=== PATIENT | female | born 1965 | race African-American/Black ===

== ENCOUNTER 2016-02-17 16:16 | Emergency (ER) | payer SELFPAY ==
[2016-02-17] MEDS ORDERED: ONDANSETRON 4 MG TAB.RAPDIS PO ONE (17:27)
[2016-02-17] MEDS ORDERED: OXYCODONE-ACETAMINOPHEN 5-325 MG TABLET PO ONE (17:27)
--- NOTE | 2016-02-17 17:27 | ER Document Report ---
ED Medical Screen (RME) - General Chief Complaint: Abdominal Pain Stated Complaint: BACK AND STOMACH PAIN Notes: 50 yo female c/o generalized abdominal pain, vaginal discharge with foul odor. + back pain, lower. no radiculopathy. no paresthesia. + anxiety attack with chest tightness/pain here in ED at triage. no nausea or vomiting. + hx/o ulcer , treated with prev-pack. TRAVEL OUTSIDE OF THE [place] IN LAST 30 DAYS: No - Related Data Allergies/Adverse Reactions: No Known Drug Allergies Allergy (Unknown, Verified 02/17/16 16:51) ants Allergy (Severe, Uncoded 02/17/16 16:51) Anaphylaxis Past Medical History - Social History Chew tobacco use (# tins/day): No Drug Abuse: None - Past Medical History Cardiac Medical History: Reports: Hx Heart Attack - pt is not sure Pulmonary Medical History: Reports: Hx Bronchitis Denies: Hx Tuberculosis Renal/ Medical History: Reports: Hx Ovarian Cysts Psychiatric Medical History: Reports: Hx Anxiety, Hx Depression Past Surgical History: Reports: Hx Section - X1, Hx Tubal Ligation. Denies: Hx Pacemaker - Immunizations Hx Diphtheria, Pertussis, Tetanus Vaccination: Yes Physical Exam - Vital signs Vitals: Temp Pulse Resp BP Pulse Ox 98.0 F 74 18 141/75 H 97 02/17/16 16:52 02/17/16 16:52 02/17/16 16:52 02/17/16 16:52 02/17/16 16:52 Course - Vital Signs Vital signs: Temp Pulse Resp BP Pulse Ox 98.0 F 74 18 141/75 H 97 02/17/16 16:52 02/17/16 16:52 02/17/16 16:52 02/17/16 16:52 02/17/16 16:52
[2016-02-17 17:51] LABS: ABSOLUTE BASOPHILS # (AUTO) 0.1 10^3/uL (0.0-0.2); ABSOLUTE EOSINOPHILS # (AUTO) 0.1 10^3/uL (0.0-0.6); ABSOLUTE LYMPHOCYTES (AUTO) 3.9 10^3/uL (0.5-4.7); ABSOLUTE MONOCYTES (AUTO) 0.5 10^3/uL (0.1-1.4); ABSOLUTE NEUT (AUTO) 4.3 10^3/uL (1.7-8.2); BASOPHILS % (AUTO) 1.4 % (0-2); EOSINOPHILS % (AUTO) 1.2 % (0-6); HEMATOCRIT 42.5 % (36.0-47.0); HEMOGLOBIN 13.8 g/dL (12.0-15.5); HGB HCT DIFFERENCE -1.1; LYMPHOCYTES % (AUTO) 43.5 % (13-45); MEAN CORPUSCULAR HEMOGLOBIN 26.5 pg (27.0-33.4); MEAN CORPUSCULAR HGB CONC 32.5 g/dL (32.0-36.0); MEAN CORPUSCULAR VOLUME 82 fl (80-97); MONOCYTES % (AUTO) 6.1 % (3-13); RED BLOOD COUNT 5.22 10^6/uL (3.72-5.28); RED CELL DISTRIBUTION WIDTH 14.4 % (11.5-14.0); SEGMENTED NEUTROPHILS % (AUTO) 47.8 % (42-78); WHITE BLOOD COUNT 9.1 10^3/uL (4.0-10.5)
[2016-02-17 18:11] LABS: ALANINE AMINOTRANSFERASE 31 U/L (9-52); ALBUMIN 4.6 g/dL (3.5-5.0); ALKALINE PHOSPHATASE 66 U/L (38-126); ANION GAP 15 (5-19); ASPARTATE AMINO TRANSFERASE 19 U/L (14-36); BILIRUBIN,TOTAL 0.4 mg/dL (0.2-1.3); BLOOD UREA NITROGEN 14 mg/dL (7-20); CARBON DIOXIDE 21 mmol/L (22-30); CHLORIDE 106 mmol/L (98-107); CREATININE RESULT 1.07 mg/dL (0.52-1.25); GLUCOSE 78 mg/dL (75-110); TOTAL PROTEIN 7.7 g/dL (6.3-8.2)
[2016-02-17 18:36] LABS: APPEARANCE,URINE SLIGHTLY-CLOUDY; BILIRUBIN,URINE NEGATIVE (NEGATIVE); GLUCOSE, URINE NEGATIVE (NEGATIVE); KETONES,URINE NEGATIVE (NEGATIVE); LEUKOCYTE ESTERASE,URINE TRACE (NEGATIVE); NITRITE,URINE NEGATIVE (NEGATIVE); PROTEIN,URINE NEGATIVE (NEGATIVE); URINE SPECIFIC GRAVITY 1.013; UROBILINOGEN,URINE NEGATIVE mg/dL (<2.0)
--- NOTE | 2016-02-17 21:14 | ER Document Report ---
ED GI/ <KANASYDNEE - Last Filed: 02/17/16 23:16> - General Mode of Arrival: Ambulatory Information source: Patient TRAVEL OUTSIDE OF THE [place] IN LAST 30 DAYS: No - HPI Patient complains to provider of: Abdominal pain Associated symptoms: Other - See above <LILLY GARNER - Last Filed: 02/17/16 23:22> - General Chief Complaint: Abdominal Pain Stated Complaint: BACK AND STOMACH PAIN Notes: Patient is a 50-year-old female who presents to the emergency department complaining of abdominal pain onset 1 week ago. Patient reports that the pain radiates around her back and worsened last night. Patient reports she has chronic lower back pain and that the pain she is experiencing now is different as it is all over. Patient also complains of vaginal odor described as "fishy" . She denies nausea, vomiting, diarrhea, burning all urinating, fever, chills, and cough. (LILLY GARNER) - Related Data Allergies/Adverse Reactions: No Known Drug Allergies Allergy (Unknown, Verified 02/17/16 16:51) ants Allergy (Severe, Uncoded 02/17/16 16:51) Anaphylaxis Past Medical History - General Information source: Patient - Social History Smoking Status: Never Smoker Chew tobacco use (# tins/day): No Drug Abuse: None Family History: CAD - father Patient has suicidal ideation: No Patient has homicidal ideation: No - Past Medical History Cardiac Medical History: Reports: Hx Heart Attack - pt is not sure Pulmonary Medical History: Reports: Hx Bronchitis Renal/ Medical History: Reports: Hx Ovarian Cysts Psychiatric Medical History: Reports: Hx Anxiety, Hx Depression Past Surgical History: Reports: Hx Section - X1, Hx Tubal Ligation - Immunizations Hx Diphtheria, Pertussis, Tetanus Vaccination: Yes <LILLY GARNER - Last Filed: 02/17/16 23:22> Review of Systems - Review of Systems Constitutional: denies: Chills, Fever EENT: No symptoms reported Cardiovascular: No symptoms reported Respiratory: denies: Cough Gastrointestinal: See HPI, Abdominal pain. denies: Diarrhea, Nausea, Vomiting Genitourinary: denies: Burning Female Genitourinary: See HPI, Vaginal odor Musculoskeletal: See HPI, Back pain Skin: No symptoms reported Hematologic/Lymphatic: No symptoms reported Neurological/Psychological: No symptoms reported -: Yes All other systems reviewed and negative <LILLY GARNER - Last Filed: 02/17/16 23:22> Physical Exam - Vital signs Interpretation: Normal - General General appearance: Appears well, Alert - HEENT Head: Normocephalic, Atraumatic Eyes: Normal Pupils: PERRL - Respiratory Respiratory status: No respiratory distress Chest status: Nontender Breath sounds: Normal Chest palpation: Normal - Cardiovascular Rhythm: Regular Heart sounds: Normal auscultation Murmur: No - Abdominal Inspection: Normal Distension: No distension Bowel sounds: Normal Tenderness: Nontender Organomegaly: No organomegaly - Genitourinary External exam: Normal Speculum exam: Vaginal discharge - white and malodorous Bimanuel exam: No: Cervical motion tender, Adnexal tenderness - Back Back: Normal, Nontender - No midline thoracic or lumbar tenderness to palpation - Extremities General upper extremity: Normal inspection, Normal ROM, Normal strength General lower extremity: Normal inspection, Normal ROM, Normal strength, Normal weight bearing - Neurological Neuro grossly intact: Yes Cognition: Normal Orientation: AAOx4 Barron Coma Scale Eye Opening: Spontaneous Welches Coma Scale Verbal: Oriented Welches Coma Scale Motor: Obeys Commands Barron Coma Scale Total: 15 Speech: Normal - Psychological Associated symptoms: Normal affect, Normal mood - Skin Skin Temperature: Warm Skin Moisture: Dry Skin Color: Normal <LILLY GARNER - Last Filed: 02/17/16 23:22> - Vital signs Vitals: Temp Pulse Resp BP Pulse Ox 98.0 F 74 18 141/75 H 97 02/17/16 16:52 02/17/16 16:52 02/17/16 16:52 02/17/16 16:52 02/17/16 16:52 (SYDNEE ROGER) (LILLY GARNER) Course - Laboratory Result Diagrams: 02/17/16 17:30 02/17/16 17:30 <SYDNEE ROGER - Last Filed: 02/17/16 23:16> - Laboratory Result Diagrams: 02/17/16 17:30 02/17/16 17:30 <LILLY GARNER - Last Filed: 02/17/16 23:22> - Vital Signs Vital signs: Temp Pulse Resp BP Pulse Ox 98.0 F 74 18 141/75 H 97 02/17/16 16:52 02/17/16 16:52 02/17/16 20:45 02/17/16 16:52 02/17/16 16:52 (SYDNEE ROGER) (LILLY GARNER) - Laboratory Laboratory results interpreted by me: 02/17/16 02/17/16 02/17/16 17:30 17:30 18:15 MCH 26.5 L RDW 14.4 H Carbon Dioxide 21 L Est GFR (Non-Af Amer) 54 L Ur Leukocyte Esterase TRACE H (SYDNEE ROGER) (LILLY GARNER) Scribe Documentation - Scribe Written by Scrteressa:: matt Sharma, 02/17/16, 2253 acting as scribe for :: Kana <LILLY GARNER - Last Filed: 02/17/16 23:22>
--- NOTE | 2016-02-17 23:06 | EKG REPORT ---
SEVERITY:- BORDERLINE ECG - SINUS RHYTHM BORDERLINE T ABNORMALITIES, DIFFUSE LEADS : Confirmed by: Bhavin Anguiano 17-Feb-2016 23:06:02
[2016-02-17 23:55] VITALS: BP 126/65
[2016-02-18 00:09] LABS: CHLAM PCR NOT DETECTED (NOT DETECT)
--- NOTE | 2016-02-29 09:19 | ER Document Report ---
Doctor's Note Notes: 02/29/16 09:18 diagnosis 1. low back pain
== END 2016-02-17 23:56 | disposition home or self-care (01) ==
LOC: ER 16:16
DX: M54.5 Low back pain (principal); R10.9 Unspecified abdominal pain; G89.29 Other chronic pain; N89.8 Other specified noninflammatory disorders of vagina; I25.2 Old myocardial infarction; Z98.51 Tubal ligation status
CPT/HCPCS: 93005; 99284; 36415; 87086; 87210; 83690; 85025; 87088; 80053; 81001; 84484; 87186; 87491; 87591; 93010; S0119

== ENCOUNTER 2016-03-17 23:39 | Emergency (ER) | payer SELFPAY ==
[2016-03-18 00:25] LABS: ABSOLUTE EOSINOPHILS # (AUTO) 0.1 10^3/uL (0.0-0.6); ABSOLUTE LYMPHOCYTES (AUTO) 4.3 10^3/uL (0.5-4.7); ABSOLUTE MONOCYTES (AUTO) 0.3 10^3/uL (0.1-1.4); ABSOLUTE NEUT (AUTO) 4.7 10^3/uL (1.7-8.2); BASOPHILS % (AUTO) 0.5 % (0-2); EOSINOPHILS % (AUTO) 0.7 % (0-6); HEMATOCRIT 37.3 % (36.0-47.0); HEMOGLOBIN 12.5 g/dL (12.0-15.5); HGB HCT DIFFERENCE 0.2; LYMPHOCYTES % (AUTO) 45.6 % (13-45); MEAN CORPUSCULAR HEMOGLOBIN 27.2 pg (27.0-33.4); MEAN CORPUSCULAR HGB CONC 33.5 g/dL (32.0-36.0); MEAN CORPUSCULAR VOLUME 81 fl (80-97); MONOCYTES % (AUTO) 3.2 % (3-13); RED BLOOD COUNT 4.59 10^6/uL (3.72-5.28); RED CELL DISTRIBUTION WIDTH 14.7 % (11.5-14.0); WHITE BLOOD COUNT 9.5 10^3/uL (4.0-10.5)
[2016-03-18 00:48] LABS: ALANINE AMINOTRANSFERASE 24 U/L (9-52); ALBUMIN 3.5 g/dL (3.5-5.0); ALKALINE PHOSPHATASE 56 U/L (38-126); ANION GAP 10 (5-19); ASPARTATE AMINO TRANSFERASE 19 U/L (14-36); BILIRUBIN,TOTAL 0.2 mg/dL (0.2-1.3); BLOOD UREA NITROGEN 11 mg/dL (7-20); CARBON DIOXIDE 20 mmol/L (22-30); CHLORIDE 109 mmol/L (98-107); CREATINE KINASE 75 U/L (30-135); CREATININE RESULT 1.23 mg/dL (0.52-1.25); GLUCOSE 126 mg/dL (75-110); POTASSIUM 3.5 mmol/L (3.6-5.0); SODIUM 139.4 mmol/L (137-145); TOTAL PROTEIN 6.1 g/dL (6.3-8.2)
[2016-03-18 01:01] LABS: CREATINE KINASE MB 0.95 ng/mL (<4.55)
[2016-03-18 01:02] LABS: TROPONIN I < 0.012 ng/mL
--- NOTE | 2016-03-18 04:05 | ER Document Report ---
ED General - General Chief Complaint: Chest Pain Stated Complaint: CHEST PAIN Notes: Patient is 50-year-old female presents with complaint of pain left side of her chest. 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 Says felt like pain that went from her left chest into her left shoulder in internal left arm. She had some numbness into her left arm. No difficulty breathing. No previous history of coronary artery disease. She says she did have panic attacks in the past which has caused chest pain but this feels different. Patient says this pain feels different and that is worse when she rolls, moves, or twists. She has a family history of coronary disease. She does smoke. Occasional alcohol use. No drug abuse. TRAVEL OUTSIDE OF THE [place] IN LAST 30 DAYS: No - Related Data Allergies/Adverse Reactions: No Known Drug Allergies Allergy (Unknown, Verified 02/17/16 16:51) ants Allergy (Severe, Uncoded 02/17/16 16:51) Anaphylaxis Past Medical History - Social History Smoking Status: Current Every Day Smoker Chew tobacco use (# tins/day): No Frequency of alcohol use: Social Drug Abuse: None Family History: CAD - father Patient has suicidal ideation: No Patient has homicidal ideation: No - Past Medical History Cardiac Medical History: Reports: Hx Heart Attack - pt is not sure Pulmonary Medical History: Reports: Hx Bronchitis Denies: Hx Tuberculosis Renal/ Medical History: Reports: Hx Ovarian Cysts. Denies: Hx Peritoneal Dialysis Psychiatric Medical History: Reports: Hx Anxiety, Hx Depression Past Surgical History: Reports: Hx Section - X1, Hx Tubal Ligation. Denies: Hx Pacemaker - Immunizations Hx Diphtheria, Pertussis, Tetanus Vaccination: Yes Review of Systems - Review of Systems Notes: My Normal Review Basic REVIEW OF SYSTEMS: CONSTITUTIONAL : Denies fever, chills, or sweats. Denies recent illness. CARDIOVASCULAR: Has chest pain RESPIRATORY: Denies cough, cold, or chest congestion. Denies shortness of breath, difficulty breathing, or wheezing. GASTROINTESTINAL: Denies abdominal pain. Denies nausea, vomiting, or diarrhea. Denies constipation. Last BM: GENITOURINARY: Denies difficulty urinating, painful urination, burning, frequency, or blood in urine. MUSCULOSKELETAL: Denies neck or back pain or joint pain or swelling. SKIN: Denies rash or skin lesions. NEUROLOGICAL: Denies altered mental status or loss of consciousness. Denies headache. Denies weakness or paralysis or loss of use of either side. Denies problems with gait or speech. Denies sensory or motor loss. ALL OTHER SYSTEMS REVIEWED AND NEGATIVE. Physical Exam - Vital signs Vitals: Temp Pulse Resp BP Pulse Ox 97.4 F 79 20 137/82 H 100 03/17/16 23:52 03/17/16 23:52 03/17/16 23:52 03/17/16 23:52 03/17/16 23:52 - Notes Notes: General Appearance: Well nourished, alert, cooperative, no acute distress, no obvious discomfort. Vitals: reviewed, See vital signs table. Head: no swelling or tenderness to the head Eyes: PERRL, EOMI, Conjuctiva clear Mouth: No decreasd moisture Neck: Supple, no neck tenderness, No thyromegaly Lungs: No wheezing, No rales, No rhonci, No accessory muscle use, good air exchange bilaterally. Heart: Normal rate, Regular rythm, No murmur, no rub Chest wall: Patient has reproducible pain to palpation over left upper chest wall. Pain is also worse when the patient moves or twists in the bed. Abdomen: Normal BS, soft, No rigidity, No abdominal tenderness, No guarding, no rebound, no abdominal masses, no organomegaly Extremities: strength 5/5 in all extremities, good pulses in all extremities, no swelling or tenderness in the extremities, no edema. Skin: warm, dry, appropriate color, no rash Neuro: speech clear, oriented x 3, normal affect, responds appropriately to questions. Course - Vital Signs Vital signs: Temp Pulse Resp BP Pulse Ox 97.4 F 79 16 126/66 H 98 03/17/16 23:52 03/17/16 23:52 03/18/16 05:02 03/18/16 05:02 03/18/16 05:02 - Laboratory Result Diagrams: 03/18/16 00:16 03/18/16 00:16 Laboratory results interpreted by me: 03/18/16 03/18/16 00:16 00:16 RDW 14.7 H Lymphocytes % 45.6 H Potassium 3.5 L Chloride 109 H Carbon Dioxide 20 L Est GFR ( Amer) 55 L Est GFR (Non-Af Amer) 46 L Glucose 126 H Total Protein 6.1 L - EKG Interpretation by Me Additional EKG results interpreted by me: 03/18/16 04:05 EKG is reviewed and interpreted by me. EKG shows normal sinus rhythm with rate of [address] segment elevation or depression. No ischemic T wave inversions. IA level, QRS duration, QTC intervals are within normal range. Old EKG for comparison is from February. - Transfer of Care Notes: 03/18/16 06:03 At this time I feel the patient is safe to be discharged home. I think it's unlikely that her pain is cardiac. I feel the cervix patient's pain is reproducible palpation also worse with movement. Also her pain was unaffected by nitroglycerin but easily relieved with Toradol. Patient looks very well. EKG is normal. She's had a troponin and a delta troponin which were both negative. Feel the patient safe to be discharged home. Due to her age I will still have her follow-up with Dr. Du, senior technical specialist. Feel that she is low risk and therefore outpatient follow-up is appropriate. Her heart score is 2. I encourage her to return to ER immediately if she has recurrent pain, any difficulty breathing, or she feels unwell. Patient agrees with plan and will be discharged home. Dictation of this chart was performed using voice recognition software; therefore, there may be some unintended grammatical errors. Discharge - Discharge Clinical Impression: Chest pain Qualifiers: Chest pain type: unspecified Qualified Code(s): R07.9 - Chest pain, unspecified Condition: Good Disposition: HOME, SELF-CARE Additional Instructions: CHEST PAIN OF UNCLEAR CAUSE: The exact cause of your chest pain isn't clear. Fortunately, there is no evidence of a dangerous medical condition. Further testing may be required to find the source of the pain. Most often, we find that this pain is coming from the chest wall -- the muscles or rib joints in the chest. But chest pain can come from the lung and lung lining, the esophagus, the heart valves or heart lining, and even the stomach or gallbladder. Rest. Eat lightly until the pain is gone. We may prescribe medicine for pain and inflammation. You should call the physician immediately if the pain radiates to the shoulder, jaw or arms; if you start to run a fever or develop a cough; or if you develop shortness of breath, or other new or alarming symptoms. NORMAL EXAM AND WORKUP: At this time, your examination and workup show no significant abnormality. No significant abnormal physical findings were noted. All laboratory, EKG, and imaging (x-ray) studies that were ordered show no significant abnormality. Although your examination and all studies that were ordered showed no significant abnormal finding, there are no examinations and no studies that are 100% accurate. There is always the possibility that some abnormality could exist and not be detected with physical examination or within the limits and capabilities of laboratory and other studies. You should return or follow up as you were instructed on your visit today for further evaluation if your symptoms do not resolve. CHEST WALL PAIN: Your chest pain may be coming from the chest wall. This is often caused by straining the muscles or joints in the chest during physical activity, direct trauma, coughing, or vigorous vomiting. Persons with arthritis are especially prone to this type of pain, due to inflammation of the cartilage joints near the breast bone. Occasionally, no cause can be found. Rest from strenuous physical activity. This kind of chest pain is usually made worse by movement of the chest. Depending on the symptoms, we may prescribe medicine for pain, muscle relaxation, and antiinflammatory effects. If the pain is new, and seems to be due to muscle strain, cold packs can help. Otherwise, apply gentle warmth to the painful area for 15 minutes every hour or two. You should call contact the doctor immediately if things change. Further evaluation is needed if you develop a fever or cough, if the nature of the pain changes, or if you become short of breath. FOLLOW-UP CARE: If you have been referred to a physician for follow-up care, call the physician s office for an appointment as you were instructed or within the next two days. If you experience worsening or a significant change in your symptoms, notify the physician immediately or return to the Emergency Department at any time for re-evaluation. Please return to the ER immediately if you have recurrent pain, fevers, difficulty breathing, or feel unwell. I suspect the pain is not related to your heart based on the fact that your EKG and blood work has been negative for any evidence of damage to her heart. Also your pain is worse with movement or pushing over the area which suggests that it's not related to your heart. Despite this I still felt appropriate follow-up with senior technical specialist for reevaluation. I have placed the number to Dr. Du, senior technical specialist on-call. Please call his office to make a close follow-up appointment. Again, please return to ER immediately if you have recurrence of your pain. Forms: Return to Work Referrals: MARTHA DU MD [ACTIVE STAFF] - 03/21/16
[2016-03-18] MEDS ORDERED: NITROGLYCERIN 2% OINTMENT 1 GM PACKET TP ONE (04:11)
[2016-03-18] MEDS ORDERED: LORAZEPAM INJ 2 MG/1 ML VIAL IV ONE (04:58)
[2016-03-18] MEDS ORDERED: KETOROLAC TROMETHAMINE INJ/PF 30 MG/1 ML SDV IV ONE (04:58)
[2016-03-18 06:47] VITALS: BP 122/65
--- NOTE | 2016-03-18 11:06 | EKG REPORT ---
SEVERITY:- NORMAL ECG - SINUS RHYTHM : Confirmed by: Bhavin Anguiano 18-Mar-2016 11:05:55
== END 2016-03-18 06:48 | disposition home or self-care (01) ==
LOC: ER 23:39
DX: R07.89 Other chest pain (principal); R20.0 Anesthesia of skin; F17.200 Nicotine dependence, unspecified, uncomplicated; Z82.49 Family history of ischemic heart disease and other diseases of the circulatory system; Z87.892 Personal history of anaphylaxis; Z91.038 Other insect allergy status
CPT/HCPCS: 93005; 99285; 96374; 96375; 36415; 82553; 82550; 85025; 80053; 84484; 71010; 93010; J1885; J2060

== ENCOUNTER → 2017-01-09 | Outpatient (CLI) | payer OTHER ==
[2017-01-09 11:18] LABS: ABSOLUTE EOSINOPHILS # (AUTO) 0.1 10^3/uL (0.0-0.6); ABSOLUTE LYMPHOCYTES (AUTO) 2.8 10^3/uL (0.5-4.7); ABSOLUTE MONOCYTES (AUTO) 0.4 10^3/uL (0.1-1.4); ABSOLUTE NEUT (AUTO) 3.8 10^3/uL (1.7-8.2); BASOPHILS % (AUTO) 0.6 % (0-2); EOSINOPHILS % (AUTO) 1.2 % (0-6); HEMATOCRIT 40.5 % (36.0-47.0); HEMOGLOBIN 13.4 g/dL (12.0-15.5); HGB HCT DIFFERENCE -0.3; LYMPHOCYTES % (AUTO) 39.2 % (13-45); MEAN CORPUSCULAR HEMOGLOBIN 26.9 pg (27.0-33.4); MEAN CORPUSCULAR HGB CONC 33.1 g/dL (32.0-36.0); MEAN CORPUSCULAR VOLUME 81 fl (80-97); MONOCYTES % (AUTO) 5.4 % (3-13); RED BLOOD COUNT 4.99 10^6/uL (3.72-5.28); RED CELL DISTRIBUTION WIDTH 14.6 % (11.5-14.0); SEGMENTED NEUTROPHILS % (AUTO) 53.6 % (42-78)
[2017-01-09 11:48] LABS: ALANINE AMINOTRANSFERASE 25 U/L (9-52); ALBUMIN 4.1 g/dL (3.5-5.0); ALKALINE PHOSPHATASE 71 U/L (38-126); ANION GAP 13 (5-19); ASPARTATE AMINO TRANSFERASE 19 U/L (14-36); BILIRUBIN,DIRECT 0.4 mg/dL (0.0-0.4); BILIRUBIN,TOTAL 0.7 mg/dL (0.2-1.3); BLOOD UREA NITROGEN 10 mg/dL (7-20); CALCIUM 9.4 mg/dL (8.4-10.2); CARBON DIOXIDE 21 mmol/L (22-30); CHLORIDE 109 mmol/L (98-107); CHOLESTEROL 200.49 mg/dL (0-200); CREATININE RESULT 1.06 mg/dL (0.52-1.25); Direct HDL 45 mg/dL (>40); GLUCOSE 98 mg/dL (75-110); POTASSIUM 4.5 mmol/L (3.6-5.0); SODIUM 142.9 mmol/L (137-145); TOTAL PROTEIN 7.3 g/dL (6.3-8.2); TRIGLYCERIDES 138 mg/dL (<150)
[2017-01-09 11:59] LABS: DIRECT LDL 114 mg/dL (<100)
[2017-01-10 05:39] LABS: HEPATITIS C VIRUS AB <0.1 s/co ratio (0.0-0.9)
[2017-01-10 09:04] LABS: THYROXINE (T4) 6.4 ug/dL (4.5-12.0)
== END ==
LOC: CCC 10:14
DX: M25.569 Pain in unspecified knee (principal)
CPT/HCPCS: 36415; 80053; 80061; 83036; 84436; 84443; 85025; 86803; 86804

== ENCOUNTER → 2017-01-09 | Outpatient (CLI) | payer OTHER ==
--- NOTE | 2017-01-10 08:40 | WOMENS IMAGING REPORT ---
EXAM DESCRIPTION: BILAT SCREENING MAMMO W/CAD COMPLETED DATE/TIME: 01/09/2017 10:02 am REASON FOR STUDY: ROUTINE SCREENING; Z12.31 Z12.31 ENCNTR SCREEN MAMMOGRAM FOR MALIGNANT NEOPLASM O F OCTAVIANO COMPARISON: Baseline study TECHNIQUE: Standard craniocaudal and mediolateral oblique views of each breast recorded using digita l acquisition. LIMITATIONS: None. FINDINGS: No masses, calcifications or architectural distortion. No areas of suspicion. Read with the assistance of CAD. .[facility] - R2 Cenova Version 1.3 .[facility] - R2 Cenova Version 1.3 .[facility] - R2 Cenova Version 2.4 .[facility] [place] - R2 Cenova Version 2.4 .[facility] - R2 Executive Administrative Assistant Version 9.2 IMPRESSION: NORMAL MAMMOGRAM. BIRADS 1. BREAST DENSITY: b. There are scattered areas of fibroglandular density. BIRAD: 1 NEGATIVE RECOMMENDATION: ROUTINE SCREENING Please consider bilateral screening tomosynthesis in December 2017 COMMENT: The patient has been notified of the results by letter per MQSA requirements. Additional no tification policies are in place for contacting patient with suspicious or incomplete findings. Quality ID #[id number]: The [employer] recommends an annual screening mammogram for women aged 40 years or over. This facility utilizes a reminder system to ensure that all patients receive reminder letters, and/or direct phone calls for appointments. This includes reminders for routine scr eening mammograms, diagnostic mammograms, or other Breast Imaging Interventions when appropriate. Th is patient will be placed in the appropriate reminder system. The [employer] (ACR) has developed recommendations for screening MRI of the breast s in certain patient populations, to be used in conjunction with mammography. Breast MRI surveillanc e may be appropriate for women with more than 20% lifetime risk of developing breast cancer as deter mined by genetic testing, significant family history of the disease, or history of mantle radiation f or Hodgkins Disease. ACR Practice Guidelines 2008. TECHNICAL DOCUMENTATION: FINDING NUMBER: (1) ASSESSMENT: (1) JOB ID: [id number] [employer]!- All Rights Reserved
== END ==
LOC: WI 09:45
DX: Z12.31 Encounter for screening mammogram for malignant neoplasm of breast (principal)
CPT/HCPCS: 77067; G0202

== ENCOUNTER 2017-04-01 12:24 | Emergency (ER) | payer SELFPAY ==
[2017-04-01] MEDS ORDERED: BUTALB/ACETAMINOPHEN/CAFFEINE 1 TAB EACH PO ONE (13:38)
[2017-04-01] MEDS ORDERED: HYDROXYZINE PAMOATE 50 MG CAPSULE PO ONE (13:38)
--- NOTE | 2017-04-01 13:42 | ER Document Report ---
HPI - HPI Onset: Yesterday Onset/Duration: Gradual Pain Level: 3 Context: Patient complains of recently staying the night at a friend's house and getting bit by bedbugs. Patient complains of multiple pruritic skin lesions. Patient states that she developed a headache to the frontal area today around 1030 in the headache is gradually started to worsen. Patient does report some photophobia. Patient denies any fever, nausea or vomiting. Associated Symptoms: Headache, Other - Insect bites. denies: Fever Exacerbated by: Denies Relieved by: Denies Similar symptoms previously: No Recently seen / treated by doctor: No - ROS ROS below otherwise negative: Yes Systems Reviewed and Negative: Yes All other systems reviewed and negative - CONSTITUTIONAL Constitutional: DENIES: Fever - NEURO Neurology: REPORTS: Headache. DENIES: Weakness, Vision blurred, Dizzinesss / Vertigo - CARDIOVASCULAR Cardiovascular: DENIES: Chest pain - RESPIRATORY Respiratory: DENIES: Coughing - GASTROINTESTINAL Gastrointestinal: DENIES: Nausea - REPRODUCTIVE Reproductive: DENIES: : - MUSCULOSKELETAL Musculoskeletal: DENIES: Extremity pain, Back Pain, Neck Pain - DERM Skin Color: Normal Skin Problems: Rash Past Medical History - General Information source: Patient - Social History Smoking Status: Current Every Day Smoker Smoking Education Provided: Yes Frequency of alcohol use: None Drug Abuse: None Occupation: Retail Lives with: Family Family History: CAD - father - Past Medical History Cardiac Medical History: Reports: Hx Heart Attack - pt is not sure Pulmonary Medical History: Reports: Hx Asthma, Hx Bronchitis Denies: Hx Tuberculosis Renal/ Medical History: Reports: Hx Ovarian Cysts. Denies: Hx Peritoneal Dialysis Psychiatric Medical History: Reports: Hx Anxiety, Hx Depression Past Surgical History: Reports: Hx Section - X1, Hx Tubal Ligation. Denies: Hx Pacemaker - Immunizations Hx Diphtheria, Pertussis, Tetanus Vaccination: Yes Vertical Provider Document - CONSTITUTIONAL Agree With Documented VS: Yes Exam Limitations: No Limitations General Appearance: WD/WN, No Apparent Distress - INFECTION CONTROL TRAVEL OUTSIDE OF THE [place] IN LAST 30 DAYS: No - HEENT HEENT: Atraumatic, Normal ENT Exam, Normocephalic - NECK Neck: Normal Inspection, Supple. negative: Lymphadenopathy-Left, Lymphadenopathy-Right Notes: No meningismus - RESPIRATORY Respiratory: Breath Sounds Normal, No Respiratory Distress, Chest Non-Tender O2 Sat by Pulse Oximetry: 97 - CARDIOVASCULAR Cardiovascular: Regular Rate, Regular Rhythm, No Murmur Pulses: Normal: Radial - BACK Back: Normal Inspection - MUSCULOSKELETAL/EXTREMETIES Musculoskeletal/Extremeties: ATUL STANLEY - NEURO Level of Consciousness: Awake, Alert, Appropriate Notes: No focal neurologic deficit, cranial nerves II through XII grossly intact - DERM Integumentary: Warm, Dry, Rash - Patient with scattered erythematous macular lesions consistent with concern about bedbug bite. Course - Re-evaluation Re-evalutation: 04/01/17 13:39 Patient with insect bites consistent with history of concern about bedbug infestation at friend's house. No meningeal irritation symptoms, no concern for meningitis or encephalitis at this time. The patient presents with headache without signs of GUARD RAIL INSTALLER bleed, stroke, infection, or other serious etiology. The patient is neurologically intact. Given the extremely low risk of these diagnoses further testing and evaluation for these possibilities does not appear to be indicated at this time. The patient has been instructed to return if the symptoms worsen or change in any way. - Vital Signs Vital signs: Temp Pulse Resp BP Pulse Ox 98.7 F 71 18 135/68 H 97 04/01/17 12:46 04/01/17 12:46 04/01/17 12:46 04/01/17 12:46 04/01/17 12:46 Discharge - Discharge Clinical Impression: Insect bite Qualifiers: Encounter type: initial encounter Qualified Code(s): W57.XXXA - Bitten or stung by nonvenomous insect and other nonvenomous arthropods, initial encounter Headache Qualifiers: Headache type: unspecified Headache chronicity pattern: unspecified pattern Intractability: not intractable Qualified Code(s): R51 - Headache Condition: Stable Disposition: HOME, SELF-CARE Instructions: Headache ([facility]), Insect Bites ([facility]), Steroid Medication Additional Instructions: Return immediately for any new or worsening symptoms Followup with your primary care provider, call tomorrow to make a followup appointment Prescriptions: Butalb/Acetaminophen/Caffeine [Fioricet (50-325-40 mg) Tablet] 1 - 2 tab PO Q4H PRN #12 each PRN Reason: Hydroxyzine HCl [Atarax 25 mg Tablet] 1 - 2 tab PO QID #20 tablet Triamcinolone Acetonide [Aristocort 0.1% Cream] 1 applic TP TID #60 gm Forms: Return to Work Referrals: JOSE SPENCE MD [Primary Care Provider] - 04/03/17
[2017-04-01 14:12] VITALS: BP 119/68
== END 2017-04-01 14:30 | disposition home or self-care (01) ==
LOC: ER 12:24
DX: T14.8XXA Other injury of unspecified body region, initial encounter (principal); R51 Headache; H53.149 Visual discomfort, unspecified; W57.XXXA Bitten or stung by nonvenomous insect and other nonvenomous arthropods, initial encounter; I25.2 Old myocardial infarction; Z98.51 Tubal ligation status
CPT/HCPCS: 99281; J3490

== ENCOUNTER 2017-08-04 16:37 | Emergency (ER) | payer OTHER ==
[2017-08-04] MEDS ORDERED: KETOROLAC TROMETHAMINE 60 MG/2 ML SDV IM ONE (18:01)
[2017-08-04] MEDS ORDERED: LIDOCAINE 5% (700 MG) TRANSDERMAL ADH..PATCH TP ONE (18:01)
[2017-08-04] MEDS ORDERED: OXYCODONE-ACETAMINOPHEN 5-325 MG TABLET PO ONE (18:01)
--- NOTE | 2017-08-04 18:04 | ER Document Report ---
HPI - HPI Patient complains to provider of: Low back pain Onset: Other - 3 days Onset/Duration: Persistent Quality of pain: Sharp Pain Level: 3 Context: Patient states she was lifting boxes at work 3 days ago and developed low back pain. Patient states pain worsens with movement. Patient denies any fever, radiculopathy, urinary retention or incontinence. Associated Symptoms: Other - Low back pain. denies: Fever, Headache Exacerbated by: Movement Relieved by: Denies Similar symptoms previously: No Recently seen / treated by doctor: No - ROS ROS below otherwise negative: Yes Systems Reviewed and Negative: Yes All other systems reviewed and negative - CONSTITUTIONAL Constitutional: DENIES: Fever - NEURO Neurology: DENIES: Headache, Weakness - GASTROINTESTINAL Gastrointestinal: DENIES: Nausea - URINARY Urinary: DENIES: Dysuria - REPRODUCTIVE Reproductive: DENIES: : - MUSCULOSKELETAL Musculoskeletal: REPORTS: Back Pain - DERM Skin Color: Normal Skin Problems: None Past Medical History - General Information source: Patient - Social History Smoking Status: Current Every Day Smoker Smoking Education Provided: Yes Frequency of alcohol use: None Drug Abuse: None Occupation: [employer] Lives with: Family Family History: CAD - father - Past Medical History Cardiac Medical History: Reports: Hx Heart Attack - pt is not sure Pulmonary Medical History: Reports: Hx Asthma, Hx Bronchitis Denies: Hx Tuberculosis Renal/ Medical History: Reports: Hx Ovarian Cysts. Denies: Hx Peritoneal Dialysis Psychiatric Medical History: Reports: Hx Anxiety, Hx Depression Past Surgical History: Reports: Hx Section - X1, Hx Tubal Ligation. Denies: Hx Pacemaker - Immunizations Hx Diphtheria, Pertussis, Tetanus Vaccination: Yes Vertical Provider Document - CONSTITUTIONAL Agree With Documented VS: Yes Exam Limitations: No Limitations General Appearance: WD/WN, No Apparent Distress Notes: PHYSICAL EXAMINATION: GENERAL: Well-appearing, well-nourished and in no acute distress. HEAD: Atraumatic, normocephalic. EYES: sclera clear, anicteric, conjunctiva are normal. ENT: nares patent, Moist mucous membranes. NECK: Normal range of motion, supple no lymphadenopathy LUNGS: respirations unlabored HEART: Regular rate and rhythm without murmurs EXTREMITIES: Normal range of motion, no pitting or edema. No cyanosis. Gait normal, pt ambulates without difficulty BACK: Lower lumbar paraspinal tenderness, no midline tenderness, no deformities or step-offs. No CVA tenderness. NEUROLOGICAL: Cranial nerves grossly intact. Normal speech, normal gait. No saddle anesthesia. No foot drop, 2+ bilateral Achilles reflexes, patient unable to relax legs so that patellar reflexes can be assessed PSYCH: Normal mood, normal affect. SKIN: Warm, Dry, normal turgor, no rashes or lesions noted. - INFECTION CONTROL TRAVEL OUTSIDE OF THE [place] IN LAST 30 DAYS: No Course - Re-evaluation Re-evalutation: 08/04/17 18:02 The patient presents with low back pain without signs of spinal cord compression , cauda equina syndrome, infection, aneurysm, or other serious etiology. The patient is neurologically intact. Given the extremely risk of these diagnoses further testing and evaluation for these possibilities does not appear to be indicated at this time. Patient has been instructed to return if the symptoms worsen or change in any way. Controlled substance database reviewed - Vital Signs Vital signs: Temp Pulse Resp BP Pulse Ox 97.9 F 71 16 152/58 H 97 08/04/17 16:44 08/04/17 16:44 08/04/17 16:44 08/04/17 16:44 08/04/17 16:44 Discharge - Discharge Clinical Impression: Low back strain Qualifiers: Encounter type: initial encounter Qualified Code(s): S39.012A - Strain of muscle, fascia and tendon of lower back, initial encounter Condition: Stable Disposition: HOME, SELF-CARE Instructions: Ice Packs ([facility]), Low Back Pain ([facility]), Oral Narcotic Medication ( [facility]) Additional Instructions: Return immediately for any new or worsening symptoms Followup with your primary care provider, call tomorrow to make a followup appointment You may use topical [id number] lidocaine patches to help with your back pain symptoms Prescriptions: Naproxen [Naprosyn 250 Nmg Tablet] 1 tab PO BID #14 tablet Oxycodone HCl/Acetaminophen [Percocet 5-325 mg Tablet] 1 tab PO ASDIR PRN #15 tablet PRN Reason: Forms: Smoking Cessation Education, Return to Work Referrals: JOSE SPENCE MD [Primary Care Provider] - 08/08/17
[2017-08-04 18:43] VITALS: BP 133/74
== END 2017-08-04 18:43 | disposition home or self-care (01) ==
LOC: ER 16:37
DX: M54.5 Low back pain (principal); X50.9XXA Other and unspecified overexertion or strenuous movements or postures, initial encounter; Y99.0 Civilian activity done for income or pay; F17.200 Nicotine dependence, unspecified, uncomplicated; J45.909 Unspecified asthma, uncomplicated
CPT/HCPCS: 99283; 96372; J1885

== ENCOUNTER 2017-08-13 13:23 | Emergency (ER) | payer OTHER ==
[2017-08-13] MEDS ORDERED: DIAZEPAM INJ 10 MG/2 ML DISP.SYRIN IM ONE (14:07)
[2017-08-13] MEDS ORDERED: DEXAMETHASONE SOD PHOS INJ 10 MG/1 ML VIAL IM ONE (14:07)
--- NOTE | 2017-08-13 14:10 | ER Document Report ---
ED General - General Chief Complaint: Abdominal Pain Stated Complaint: BACK PAIN Time Seen by Provider: 08/13/17 14:00 Mode of Arrival: Ambulatory Information source: Patient Notes: 52 yr old female presents with complaints of flank pain radiating to the suprapubi region. pt notes 2 weeks ago at work she sprained it , was seen here and treated for sprain and improved symptoms but has not gone away denies any fevers or chills, notes it hurts in the suprapubic region when she urinates TRAVEL OUTSIDE OF THE [place] IN LAST 30 DAYS: No - HPI Onset: Other Onset/Duration: Waxing and waning Quality of pain: Achy Severity: Mild Pain Level: 1 Associated symptoms: Body/muscle aches Exacerbated by: Movement Relieved by: Denies Similar symptoms previously: Yes Recently seen / treated by doctor: Yes - Related Data Allergies/Adverse Reactions: No Known Drug Allergies Allergy (Unknown, Verified 08/13/17 14:06) ants Allergy (Severe, Uncoded 08/13/17 14:06) Anaphylaxis Past Medical History - Social History Smoking Status: Current Every Day Smoker Cigarette use (# per day): Yes Chew tobacco use (# tins/day): No Smoking Education Provided: No Frequency of alcohol use: None Drug Abuse: None Family History: CAD - father Patient has suicidal ideation: No Patient has homicidal ideation: No - Past Medical History Cardiac Medical History: Reports: Hx Heart Attack - pt is not sure Pulmonary Medical History: Reports: Hx Asthma, Hx Bronchitis Denies: Hx Tuberculosis Renal/ Medical History: Reports: Hx Ovarian Cysts. Denies: Hx Peritoneal Dialysis Psychiatric Medical History: Reports: Hx Anxiety, Hx Depression Past Surgical History: Reports: Hx Section - X1, Hx Tubal Ligation. Denies: Hx Pacemaker - Immunizations Hx Diphtheria, Pertussis, Tetanus Vaccination: Yes Review of Systems - Review of Systems Notes: REVIEW OF SYSTEMS: CONSTITUTIONAL : Denies fever, chills, or sweats. Denies recent illness. EENT: Denies eye, ear, throat, or mouth pain or symptoms. Denies nasal or sinus congestion or discharge. Denies throat, tongue, or mouth swelling or difficulty swallowing. CARDIOVASCULAR: Denies chest pain. Denies palpitations or racing or irregular heart beat. Denies ankle edema. RESPIRATORY: Denies cough, cold, or chest congestion. Denies shortness of breath, difficulty breathing, or wheezing. GASTROINTESTINAL: Denies abdominal pain or distention. Denies nausea, vomiting , or diarrhea. Denies blood in vomitus, stools, or per rectum. Denies black, tarry stools. Denies constipation. GENITOURINARY: Denies difficulty urinating, painful urination, burning, frequency, blood in urine, or discharge. FEMALE GENITOURINARY: Denies vaginal bleeding, heavy or abnormal periods, irregular periods. Denies vaginal discharge or odor. MUSCULOSKELETAL: back pain radiating ot the suprapubic region SKIN: Denies rash, lesions or sores. HEMATOLOGIC : Denies easy bruising or bleeding. LYMPHATIC: Denies swollen, enlarged glands. NEUROLOGICAL: Denies confusion or altered mental status. Denies passing out or loss of consciousness. Denies dizziness or lightheadedness. Denies headache. Denies weakness or paralysis or loss of use of either side. Denies problems with gait or speech. Denies sensory loss, numbness, or tingling. Denies seizures. PSYCHIATRIC: Denies anxiety or stress. Denies depression, suicidal ideation, or homicidal ideation. ALL OTHER SYSTEMS REVIEWED AND NEGATIVE. PHYSICAL EXAMINATION: GENERAL: Well-appearing, well-nourished and in no acute distress. HEAD: Atraumatic, normocephalic. EYES: Pupils equal round and reactive to light, extraocular movements intact, conjunctiva are normal. ENT: Nares patent, oropharynx clear without exudates. Moist mucous membranes. NECK: Normal range of motion, supple without lymphadenopathy LUNGS: Breath sounds clear to auscultation bilaterally and equal. No wheezes rales or rhonchi. HEART: Regular rate and rhythm without murmurs ABDOMEN: Soft, nontender, nondistended abdomen. No guarding, no rebound. No masses appreciated. Female : deferred Musculoskeletal:pain with rom, tender on palpation of the low back in the L1-L2 region, no step off or deformity. NEUROLOGICAL: Cranial nerves grossly intact. Normal speech, normal gait. Normal sensory, motor exams PSYCH: Normal mood, normal affect. SKIN: Warm, Dry, normal turgor, no rashes or lesions noted. Dictation was performed using VDP voice recognition software Physical Exam - Vital signs Vitals: Temp Pulse Resp BP Pulse Ox 98.7 F 73 20 135/55 H 97 08/13/17 13:28 08/13/17 13:28 08/13/17 13:28 08/13/17 13:28 08/13/17 13:28 Course - Re-evaluation Re-evalutation: 08/13/17 15:08 Patient's workup was quite benign, she will get given pain control and is otherwise stable for discharge After performing a Medical Screening Examination, I estimate there is LOW risk for EXPANDING OR RUPTURED ABDOMINAL AORTIC ANEURYSM, CAUDA EQUINA SYNDROME, EPIDURAL MASS LESION, or HERNIATED DISK CAUSING SEVERE SPINAL STENOSIS, thus I consider the discharge disposition reasonable. I have reevaluated this patient multiple times and no significant life threatening changes are noted. The patient and I have discussed the diagnosis and risks, and we agree with discharging home and close follow-up. We also discussed returning to the Emergency Department immediately if new or worsening symptoms occur with the understanding that symptoms and presentations can change. We have discussed the symptoms which are most concerning (e.g., saddle anesthesia, urinary or bowel incontinence or retention, changing or worsening pain) that necessitate immediate return. - Vital Signs Vital signs: Temp Pulse Resp BP Pulse Ox 98.7 F 73 20 135/55 H 97 08/13/17 13:28 08/13/17 13:28 08/13/17 13:28 08/13/17 13:28 08/13/17 13:28 - Laboratory Result Diagrams: 08/13/17 14:13 08/13/17 14:13 Laboratory results interpreted by me: 08/13/17 08/13/17 08/13/17 14:13 14:13 14:13 MCH 26.6 L RDW 14.8 H Sodium 149.4 H Chloride 113 H Glucose 141 H Urine Urobilinogen 2.0 H Discharge - Discharge Clinical Impression: Back strain Qualifiers: Encounter type: initial encounter Qualified Code(s): S39.012A - Strain of muscle, fascia and tendon of lower back, initial encounter Condition: Stable Disposition: HOME, SELF-CARE Instructions: Low Back Pain ([facility]) Prescriptions: Diazepam [Valium 5 mg Tablet] 5 mg PO QIDP PRN #15 tablet PRN Reason: Prednisone 60 mg PO DAILY 5 Days tablet Forms: Return to Work Referrals: JOSE SPENCE MD [Primary Care Provider] - Follow up tomorrow
[2017-08-13 14:29] LABS: ABSOLUTE BASOPHILS # (AUTO) 0.1 10^3/uL (0.0-0.2); ABSOLUTE EOSINOPHILS # (AUTO) 0.1 10^3/uL (0.0-0.6); ABSOLUTE LYMPHOCYTES (AUTO) 3.2 10^3/uL (0.5-4.7); ABSOLUTE MONOCYTES (AUTO) 0.3 10^3/uL (0.1-1.4); ABSOLUTE NEUT (AUTO) 3.7 10^3/uL (1.7-8.2); BASOPHILS % (AUTO) 0.7 % (0-2); HEMATOCRIT 39.3 % (36.0-47.0); HEMOGLOBIN 12.8 g/dL (12.0-15.5); LYMPHOCYTES % (AUTO) 43.4 % (13-45); MEAN CORPUSCULAR HEMOGLOBIN 26.6 pg (27.0-33.4); MEAN CORPUSCULAR HGB CONC 32.7 g/dL (32.0-36.0); MEAN CORPUSCULAR VOLUME 81 fl (80-97); MONOCYTES % (AUTO) 4.7 % (3-13); PLATELET COUNT 211 10^3/uL (150-450); RED BLOOD COUNT 4.83 10^6/uL (3.72-5.28); RED CELL DISTRIBUTION WIDTH 14.8 % (11.5-14.0); SEGMENTED NEUTROPHILS % (AUTO) 50.2 % (42-78); TOTAL CELLS COUNTED % (AUTO) 100 %; WHITE BLOOD COUNT 7.3 10^3/uL (4.0-10.5)
[2017-08-13 14:34] LABS: APPEARANCE,URINE CLEAR; BILIRUBIN,URINE NEGATIVE (NEGATIVE); COLOR,URINE YELLOW; GLUCOSE, URINE NEGATIVE (NEGATIVE); KETONES,URINE NEGATIVE (NEGATIVE); LEUKOCYTE ESTERASE,URINE NEGATIVE (NEGATIVE); NITRITE,URINE NEGATIVE (NEGATIVE); PROTEIN,URINE NEGATIVE (NEGATIVE); URINE SPECIFIC GRAVITY 1.027
[2017-08-13 14:47] LABS: ALANINE AMINOTRANSFERASE 16 U/L (9-52); ALBUMIN 3.8 g/dL (3.5-5.0); ALKALINE PHOSPHATASE 63 U/L (38-126); ANION GAP 10 (5-19); ASPARTATE AMINO TRANSFERASE 17 U/L (14-36); BILIRUBIN,DIRECT 0.3 mg/dL (0.0-0.4); BILIRUBIN,TOTAL 0.3 mg/dL (0.2-1.3); BLOOD UREA NITROGEN 11 mg/dL (7-20); CALCIUM 9.3 mg/dL (8.4-10.2); CARBON DIOXIDE 26 mmol/L (22-30); CHLORIDE 113 mmol/L (98-107); GLUCOSE 141 mg/dL (75-110); LIPASE 55.4 U/L (23-300); POTASSIUM 3.8 mmol/L (3.6-5.0); SODIUM 149.4 mmol/L (137-145)
[2017-08-13 15:21] VITALS: BP 128/78
== END 2017-08-13 15:20 | disposition home or self-care (01) ==
LOC: ER 13:23
DX: S39.012D Strain of muscle, fascia and tendon of lower back, subsequent encounter (principal); R10.30 Lower abdominal pain, unspecified; M54.9 Dorsalgia, unspecified; M79.1 Myalgia; X58.XXXD Exposure to other specified factors, subsequent encounter; F17.210 Nicotine dependence, cigarettes, uncomplicated; J45.909 Unspecified asthma, uncomplicated
CPT/HCPCS: 99283; 96372; 36415; 83690; 85025; 81025; 80053; 81001; J3360; J1100

== ENCOUNTER 2017-09-26 22:37 | Emergency (ER) | payer OTHER ==
[2017-09-26 23:06] VITALS: BP 143/63
[2017-09-27] MEDS ORDERED: PREDNISONE 20 MG TABLET PO ONE (02:27)
[2017-09-27] MEDS ORDERED: DIAZEPAM 2 MG TABLET PO ONE (02:27)
--- NOTE | 2017-09-27 02:47 | ER Document Report ---
ED Neck/Back Problem - General Chief Complaint: Back Pain Stated Complaint: BACK PAIN Time Seen by Provider: 09/27/17 01:11 Notes: Patient is a 52-year-old female who comes in complaining of back pain which she has had since July 31 when she injured herself at work. Patient is supposed to have a Workmen's Comp. claim but states that she has not been given any follow- up regarding this. Pain has not changed it is across her lower back and states that it radiates anteriorly at times. No decreased sensation or strength. Denies any bladder or bowel incontinence. She has been taking ibuprofen at home without relief. TRAVEL OUTSIDE OF THE [place] IN LAST 30 DAYS: No - Related Data Allergies/Adverse Reactions: No Known Drug Allergies Allergy (Unknown, Verified 08/13/17 14:06) ants Allergy (Severe, Uncoded 08/13/17 14:06) Anaphylaxis Past Medical History - Social History Smoking Status: Unknown if Ever Smoked Family History: CAD - father Patient has suicidal ideation: No Patient has homicidal ideation: No - Past Medical History Cardiac Medical History: Reports: Hx Heart Attack - pt is not sure Pulmonary Medical History: Reports: Hx Asthma, Hx Bronchitis Denies: Hx Tuberculosis Renal/ Medical History: Reports: Hx Ovarian Cysts. Denies: Hx Peritoneal Dialysis Psychiatric Medical History: Reports: Hx Anxiety, Hx Depression Past Surgical History: Reports: Hx Section - X1, Hx Tubal Ligation. Denies: Hx Pacemaker - Immunizations Hx Diphtheria, Pertussis, Tetanus Vaccination: Yes Review of Systems - Review of Systems Constitutional: No symptoms reported EENT: No symptoms reported Cardiovascular: No symptoms reported Respiratory: No symptoms reported Gastrointestinal: No symptoms reported Genitourinary: No symptoms reported Female Genitourinary: No symptoms reported Musculoskeletal: See HPI Skin: No symptoms reported Hematologic/Lymphatic: No symptoms reported Neurological/Psychological: No symptoms reported Physical Exam - Vital signs Vitals: Temp Pulse Resp BP Pulse Ox 98.5 F 74 14 143/63 H 95 09/26/17 22:50 09/26/17 22:50 09/26/17 22:50 09/26/17 22:50 09/26/17 22:50 Interpretation: Normal - General General appearance: Appears well, Alert - HEENT Head: Normocephalic, Atraumatic Eyes: Normal Pupils: PERRL - Respiratory Respiratory status: No respiratory distress Chest status: Nontender Breath sounds: Normal Chest palpation: Normal - Cardiovascular Rhythm: Regular Heart sounds: Normal auscultation Murmur: No - Abdominal Inspection: Normal Distension: No distension Bowel sounds: Normal Tenderness: Nontender Organomegaly: No organomegaly - Back Back: Tender - L3-L5 paraspinal bilaterally, bilateral SI joints. No: Deformity /step-off, CVA tenderness - Extremities General upper extremity: Normal inspection, Nontender, Normal color, Normal ROM , Normal temperature General lower extremity: Normal inspection, Nontender, Normal color, Normal ROM , Normal temperature, Normal weight bearing. No: Carrol's sign - Neurological Neuro grossly intact: Yes Cognition: Normal Orientation: AAOx4 Madison Coma Scale Eye Opening: Spontaneous Barron Coma Scale Verbal: Oriented Madison Coma Scale Motor: Obeys Commands Barron Coma Scale Total: 15 Speech: Normal Motor strength normal: LUE, RUE, LLE, RLE Sensory: Normal - Psychological Associated symptoms: Normal affect, Normal mood - Skin Skin Temperature: Warm Skin Moisture: Dry Skin Color: Normal Course - Re-evaluation Re-evalutation: 09/27/17 04:08 Patient is a 52-year-old female who comes in complaining of back pain that she has had for almost 2 months. Patient is seen at the [facility] and is supposed to start physical therapy soon. She is supposed to be following up with workman's comp is she injured herself at work. States that she had an appointment but it got canceled. Patient will be put in touch with social work to help her navigate this situation. In the meantime she will be discharged home with a Medrol Dosepak and Valium as needed for back spasm. She also be given a prescription for Lidoderm patches. She is neurovascularly intact with no incontinence or urinary retention. Stable for discharge. Able to ambulate. Agrees with plan. - Vital Signs Vital signs: Temp Pulse Resp BP Pulse Ox 98.5 F 74 14 143/63 H 95 09/26/17 22:50 09/26/17 22:50 09/26/17 22:50 09/26/17 22:50 09/26/17 22:50 - Laboratory Laboratory results interpreted by me: 09/27/17 03:12 Urine Nitrite POSITIVE H Discharge - Discharge Clinical Impression: Radicular low back pain Condition: Stable Disposition: HOME, SELF-CARE Instructions: Low Back Pain ([facility]) Prescriptions: Diazepam [Valium 2 mg Tablet] 2 mg PO BIDP PRN #20 tablet PRN Reason: Lidocaine [Lidoderm 5% (700 mg) Transdermal Patch] 1 patch TP DAILY #30 adh..patch Methylprednisolone [Medrol Dosepack (4 mg/Tab) 21 Tab/Dosepak] 4 mg PO ASDIR PRN #21 tab.ds.pk PRN Reason: Forms: Follow-Up Radiology Testing Referrals: JOSE SPENCE MD [Primary Care Provider] - Follow up as needed LEVAR JONES MD [ACTIVE STAFF] - Follow up as needed
[2017-09-27 03:59] LABS: APPEARANCE,URINE SLIGHTLY-CLOUDY; BILIRUBIN,URINE NEGATIVE (NEGATIVE); COLOR,URINE YELLOW; GLUCOSE, URINE NEGATIVE (NEGATIVE); KETONES,URINE NEGATIVE (NEGATIVE); LEUKOCYTE ESTERASE,URINE NEGATIVE (NEGATIVE); NITRITE,URINE POSITIVE (NEGATIVE); PROTEIN,URINE NEGATIVE (NEGATIVE); URINE SPECIFIC GRAVITY 1.009; UROBILINOGEN,URINE NEGATIVE mg/dL (<2.0)
== END 2017-09-27 03:21 | disposition home or self-care (01) ==
LOC: ER 22:37
DX: T14.90XA Injury, unspecified, initial encounter (principal); M54.10 Radiculopathy, site unspecified; M54.5 Low back pain; X58.XXXA Exposure to other specified factors, initial encounter; J45.909 Unspecified asthma, uncomplicated; Z87.892 Personal history of anaphylaxis; Z91.030 Bee allergy status
CPT/HCPCS: 99283; 81001; J3490; J7512

== ENCOUNTER → 2017-09-28 | Outpatient (CLI) | payer OTHER ==
--- NOTE | 2017-09-28 12:14 | RADIOLOGY REPORT (SQ) ---
EXAM DESCRIPTION: MRI LUMBAR SPINE WITHOUT COMPLETED DATE/TIME: 09/28/2017 11:35 am REASON FOR STUDY: LOW BACK PAIN (M54.5) M54.5 LOW BACK PAIN COMPARISON: None. TECHNIQUE: Sagittal and Axial imaging includes T1, T2, STIR and gradient echo sequences. Coronal T2/ HASTE imaging. LIMITATIONS: None. FINDINGS: VISUALIZED UPPER ABDOMEN: Limited evaluation. No acute or suspicious findings suggested. SEGMENTATION: No transitional anatomy. The lowest well-developed disc space is labeled L5-S1. ALIGNMENT: Anatomic. VERTEBRAE: Intact. BONE MARROW: Normal. No marrow replacement or reactive changes. DISC SIGNAL: Normal. No significant abnormal signal or loss of height. POSTERIOR ELEMENTS: Generally intact. No pars defect evident. HARDWARE: None in the spine. CORD AND CONUS: Normal in size and signal intensity. Conus at the T12-L1 level. SOFT TISSUES: No aortic aneurysm seen. No bulky retroperitoneal adenopathy or mass. No paraspinal mas s or fluid. T10-11: At the upper edge of the field of view. Bilateral facet arthropathy causes mild bilateral f oraminal narrowing. No central canal narrowing. T11-12: Unremarkable T12-L1: Unremarkable L1-L2: Unremarkable L2-L3: Unremarkable L3-L4: Mild posterior disc bulging and mild bilateral facet and ligament hypertrophy is present witho ut significant central or foraminal encroachment. L4-L5: Moderate diffuse posterior disc bulging and moderate facet and ligament hypertrophy cause bord magui central canal narrowing. Mild right inferior foraminal narrowing without exiting right L4 ner ve root impingement. No significant left foraminal stenosis. L5-S1: Mild diffuse posterior disc bulge, mild bilateral facet and ligament hypertrophy. No central stenosis or significant foraminal narrowing. SACRUM: Visualized upper sacrum intact. OTHER: No other significant findings. IMPRESSION: Lower lumbar degenerative changes as above. No high-grade central or foraminal encroach ment. TECHNICAL DOCUMENTATION: JOB ID: [id number] [email or web address] All Rights Reserved Reading location - IP/workstation name: [facility], [facility]
== END ==
LOC: RAD 10:35
PROVIDERS: ATTEND Emergency Medicine
DX: M54.5 Low back pain (principal); M54.16 Radiculopathy, lumbar region
CPT/HCPCS: 72148